=== PATIENT | female | born 1955 | race Caucasian/White ===

== ENCOUNTER → 2024-07-25 17:40 | Outpatient (REF) | payer OTHER, SELFPAY | LOC: WDC 17:40 | PROVIDERS: ATTENDING PHYSICIAN Obstetrics & Gynecology Gynecology; FAMILY PHYSICIAN Internal Medicine | DX: Z12.31 Encounter for screening mammogram for malignant neoplasm of breast (principal) | CPT/HCPCS: 77063; 77067 ==

== ENCOUNTER → 2025-01-16 15:00 | Outpatient (REF) | payer OTHER, SELFPAY | LOC: RAD 15:00 | PROVIDERS: ATTENDING PHYSICIAN Internal Medicine | DX: R07.81 Pleurodynia (principal) | CPT/HCPCS: 71046 ==